=== PATIENT | female | born 1980 | race Caucasian/White ===

== ENCOUNTER 2016-09-05 03:16 | Emergency (ER) | payer MEDICARE, MEDICAID ==
[~2016-09-05] VITALS: Ht 157.5 cm; Wt 106.6 kg
[2016-09-05] MEDS ORDERED: OXYCODONE/APAP 5MG/325MG(BULK FOR ED) 1 TABLET PO ONE (04:30)
[2016-09-05] MEDS ORDERED: CLINDAMYCIN 150 MG CAP PO ONE (04:30)
[2016-09-05] MEDS ORDERED: CLIN1CAP5 PO (04:33)
[2016-09-05] MEDS ORDERED: OXYC1TAB23 PO (04:33)
[2016-09-05 04:51] VITALS: BP 142/68
== END 2016-09-05 04:52 | disposition home or self-care (01) ==
LOC: EDBD 03:16 → M ED 04:07
DX: S02.5XXA Fracture of tooth (traumatic), initial encounter for closed fracture (principal); X58.XXXA Exposure to other specified factors, initial encounter; Y92.89 Other specified places as the place of occurrence of the external cause; Y93.89 Activity, other specified; Y99.8 Other external cause status

== ENCOUNTER 2018-05-04 20:13 | Emergency (ER) | payer MEDICARE ==
[2018-05-04] MEDS ORDERED: CLINDAMYCIN 150 MG CAP As Ordered (21:59)
[2018-05-04] MEDS: CLINDAMYCIN 150 MG CAP PO (22:00)
[2018-05-04] MEDS ORDERED: CLINDAMYCIN 300 MG in APPROPRIATE DILUENT 1 EA IV (22:00)
[2018-05-04] MEDS: NORCO, ANEXSIA 5/325MG TABLET (HYDROcodone/ACETAMINOPHEN) PO (22:00)
== END 2018-05-04 22:15 | disposition home or self-care (01) ==
LOC: M ED 20:13
DX: K04.7 Periapical abscess without sinus (principal); H92.02 Otalgia, left ear; F79 Unspecified intellectual disabilities
CPT/HCPCS: 99282

== ENCOUNTER 2018-06-30 12:50 | Emergency (ER) | payer MEDICAID, MEDICARE ==
[~2018-06-30] VITALS: Ht 157.5 cm; Wt 96.5 kg
[~2018-06-30 12:50] MED LIST: CLEO300C2 PO; CLIN150C14 PO; IBUP100S5 PO; MIRA3350 PO; NORCOTAB PO; OXYC1TAB23 PO; PENI500T PO; PERC5TAB12 PO
[2018-06-30] MEDS ORDERED: CLEO300C2 PO (15:45)
[2018-06-30] MEDS ORDERED: ACETAMINOPH W/CODEINE #3 TAB UD PO ONE (15:45)
[2018-06-30] MEDS ORDERED: ACET30TAB PO (15:46)
[2018-06-30 15:52] VITALS: BP 134/77
== END 2018-06-30 15:56 | disposition home or self-care (01) ==
LOC: M ED 12:50
DX: K04.7 Periapical abscess without sinus (principal)

== ENCOUNTER 2018-11-04 11:51 | Emergency (ER) | payer MEDICARE ==
[~2018-11-04] VITALS: Ht 157.5 cm; Wt 84.3 kg
[2018-11-04 11:51] VITALS: BP 138/78
[~2018-11-04 11:51] MED LIST changes: +ACET-716 PO; +HYDR-3715 PO; -IBUP100S5 PO; +IBUP100S65 PO; -NORCOTAB PO
[2018-11-04] MEDS ORDERED: AUGM875T28 PO (14:35)
[2018-11-04] MEDS ORDERED: MAGICMW SSP (14:35)
[2018-11-04] MEDS ORDERED: NAPR-837 PO (14:35)
[2018-11-04] MEDS ORDERED: NAPROXEN 250 MG TAB PO ONE (14:45)
[2018-11-04] MEDS ORDERED: AUGMENTIN 875 MG TAB PO ONE (14:45)
== END 2018-11-04 14:43 | disposition home or self-care (01) ==
LOC: M ED 11:51
DX: K04.7 Periapical abscess without sinus (principal); S02.5XXA Fracture of tooth (traumatic), initial encounter for closed fracture; X58.XXXA Exposure to other specified factors, initial encounter; Y92.89 Other specified places as the place of occurrence of the external cause; F79 Unspecified intellectual disabilities; Z88.6 Allergy status to analgesic agent

== ENCOUNTER 2021-03-03 01:25 | Emergency (ER) | payer MEDICARE ==
[~2021-03-03] VITALS: Ht 157.5 cm; Wt 69.1 kg
[~2021-03-03 01:25] MED LIST changes: +AUGM875T28 PO; -CLIN150C14 PO; +CLIN150C17 PO; +MAGICMW SSP; +NAPR-837 PO
[2021-03-03 01:26] VITALS: BP 131/62
== END 2021-03-03 02:30 | disposition left against medical advice (07) ==
LOC: M ED 01:25
DX: Z53.29 Procedure and treatment not carried out because of patient's decision for other reasons (principal)

== ENCOUNTER 2021-03-03 22:50 | Emergency (ER) | payer MEDICARE ==
[~2021-03-03] VITALS: Ht 157.5 cm; Wt 68.2 kg
[2021-03-04 00:26] LABS: HEMATOCRIT 38.9 % (36.0-47.0); HEMOGLOBIN 12.8 g/dl (12.0-15.5); MEAN CORPUSCULAR HGB CONC 32.9 g/dl (32.0-36.5); PLATELET COUNT, AUTOMATED 294 10^3/uL (150-450); RED BLOOD COUNT 4.42 10^6/uL (4.00-5.40)
[2021-03-04 00:53] LABS: ATYPICAL LYMPH 8 % (0-5); LYMPHOCYTES 29 % (16-44); MONOCYTES 3 % (0-5); NEUTROPHILS 60 % (28-66)
[2021-03-04 00:54] LABS: PLATELET ESTIMATE NORMAL (NORMAL)
[2021-03-04 01:10] LABS: ALBUMIN 3.8 GM/DL (3.2-5.2); ALT/SGPT 70 U/L (12-78); BILIRUBIN,DIRECT < 0.1 MG/DL (0.0-0.2); BILIRUBIN,TOTAL 0.2 MG/DL (0.2-1.0); BLOOD UREA NITROGEN 16 MG/DL (7-18); CALCIUM LEVEL 8.9 MG/DL (8.5-10.1); CARBON DIOXIDE LEVEL 28 MEQ/L (21-32); CHLORIDE LEVEL 106 MEQ/L (98-107); CREATININE FOR GFR 0.71 MG/DL (0.55-1.30); GLOMERULAR FILTRATION RATE > 60.0 (>58); GLUCOSE, FASTING 98 MG/DL (70-100); LIPASE 263 U/L (73-393); POTASSIUM SERUM 4.1 MEQ/L (3.5-5.1); SODIUM LEVEL 139 MEQ/L (136-145); TOTAL PROTEIN 7.1 GM/DL (6.4-8.2)
[2021-03-04] MEDS ORDERED: NS 1,000 ML IV ONE (01:10)
[2021-03-04 02:30] VITALS: BP 143/67
--- NOTE | 2021-03-04 06:01 | ECGEPIP ---
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
== END 2021-03-04 03:01 | disposition home or self-care (01) ==
LOC: M ED 22:50
DX: R42 Dizziness and giddiness (principal)